=== PATIENT | male | born 1990 | race African-American/Black ===

== ENCOUNTER 2018-02-21 22:51 | Emergency (ER) | payer OTHER ==
[~2018-02-21] VITALS: Ht 180.3 cm; Wt 73.8 kg
[2018-02-22 01:30] VITALS: BP 120/65
== END 2018-02-22 03:20 | disposition left against medical advice (07) ==
LOC: ER 22:51
DX: R09.81 Nasal congestion (principal); Z53.21 Procedure and treatment not carried out due to patient leaving prior to being seen by health care provider